=== PATIENT | female | born 2005 | race Caucasian/White ===

== ENCOUNTER 2024-01-17 16:58 | Emergency (ER) | payer MEDICAID ==
[~2024-01-17] VITALS: Ht 167.6 cm; Wt 49.9 kg
[2024-01-17 17:23] LABS: BASOPHILS % (AUTO) 0.5 % (0.0-2.0); EOSINOPHILS # (AUTO) 0.1 K/uL (0.0-0.7); EOSINOPHILS % (AUTO) 1.5 % (0.0-7.0); HEMOGLOBIN 13.1 g/dL (10.9-14.3); LYMPHOCYTES # (AUTO) 2.7 K/uL (0.8-4.8); LYMPHOCYTES % (AUTO) 35.5 % (20.5-74.5); MEAN CORPUSCULAR HEMOGLOBIN 30.6 uug (24.7-32.8); MEAN CORPUSCULAR HGB CONC 35 g/dL (32.3-35.6); MEAN CORPUSCULAR VOLUME 86.6 fL (75.5-95.3); MONOCYTES # (AUTO) 0.6 K/uL (0.1-1.30); MONOCYTES % (AUTO) 7.7 % (0-11); NEUTROPHILS # (AUTO) 4.2 K/uL (1.8-8.9); NEUTROPHILS % (AUTO) 54.8 % (31.5-64.5); PLATELET COUNT (AUTO) 430 K/uL (179-408); RED BLOOD CELL COUNT(AUTO) 4.28 MIL/uL (3.63-4.92); RED CELL DISTRIBUTION WIDTH 12.9 % (12.3-17.7); WHITE BLOOD COUNT (AUTO) 7.7 K/uL (3.8-11.8)
[2024-01-17 17:24] LABS: DIFFERENTIAL COMMENT 1
[2024-01-17] MEDS: IV NORMAL SALINE 1000 ML BAG IV ONE (17:26)
[2024-01-17] MEDS ORDERED: LORAZEPAM 2 MG/1 ML VIAL ONE (17:28)
[2024-01-17 17:31] LABS: CALCIUM 9.2 mg/dL (8.5-10.1); CARBON DIOXIDE 28 mmol/L (21-32); CHLORIDE 105 mmol/L (98-107); CREATININE 0.8 mg/dL (0.6-1.3); GLUCOSE 76 mg/dL (74-106); POTASSIUM 3.5 mmol/L (3.5-5.1); SODIUM SERUM 142 mmol/L (136-145); UREA NITROGEN, BLOOD 7 mg/dL (7-18)
[2024-01-17] MEDS: LORAZEPAM 2 MG/1 ML VIAL IV ONE (17:36)
[2024-01-17 17:37] LABS: ALANINE AMINOTRANSFERASE 16 U/L (14-59); ALBUMIN 4.2 g/dL (3.4-5.0); ALKALINE PHOSPHATASE 62 U/L (50-136); ASPARTATE AMINOTRANSFERASE 10 U/L (15-37); BILIRUBIN,DIRECT 0.2 mg/dL (0.0-0.2); BILIRUBIN,TOTAL 0.9 mg/dL (0.2-1.0); TOTAL PROTEIN, SERUM 7.7 g/dL (6.4-8.2)
[2024-01-17 17:46] LABS: ETHANOL < 3 MG/DL (0-10)
[2024-01-17 17:55] LABS: *BILIRUBIN,URIN NEGATIVE (NEGATIVE); *BLOOD, URINE TRACE (NEGATIVE); *CLARITY,URINE CLEAR (CLEAR); *COLOR,URINE YELLOW (YELLOW); *KETONES,URINE TRACE (NEGATIVE); *PROTEIN,URINE NEGATIVE (NEGATIVE); LEUKOCYTE ESTERASE ,URINE 1+ (NEGATIVE); NITRITE, URINE NEGATIVE (NEGATIVE); UGLUCOSE NEGATIVE (NEGATIVE)
[2024-01-17 17:56] LABS: *URINE HCG, QUAL NEGATIVE (NEGATIVE)
[2024-01-17 18:05] LABS: BACTERIA,URINE FEW /HPF (NONE SEEN); RBC,URINE 0-3 /HPF (0-3)
[2024-01-17 18:06] LABS: SQUAMOUS EPITHELIAL CELL,UR MODERATE /HPF (NONE SEEN)
[2024-01-17 18:07] LABS: *AMPHETAMINE, URINE POSITIVE (NEGATIVE); *BARBITURATE, URINE NEGATIVE (NEGATIVE); *BENZODIAZEPINE, URINE NEGATIVE (NEGATIVE); *CANNABINOID, URINE POSITIVE (NEGATIVE); *COCCAINE, URINE NEGATIVE (NEGATIVE); *OPIATE, URINE NEGATIVE (NEGATIVE); *PHENCYCLIDINE SCREEN,URINE NEGATIVE (NEGATIVE); FENTANYL, URINE NEGATIVE (NEGATIVE)
[2024-01-18 08:23] VITALS: BP 101/61; O2SAT 99
== END 2024-01-18 06:25 | disposition home or self-care (01) ==
LOC: ER 16:59 → EDBD 16:59 → ER 01-18 06:25
DX: R41.82 Altered mental status, unspecified (principal); R06.02 Shortness of breath; Z60.2 Problems related to living alone
CPT/HCPCS: 80076; 80048; 81001; 84703; 85025; 36415; 93005; 99284; 96361; 96374; 87086; 80320; 80307; J2060; J7040; A4606; A4663; G0480

== ENCOUNTER 2024-01-18 14:23 | Emergency (ER) | payer MEDICAID ==
[~2024-01-18] VITALS: Ht 167.6 cm; Wt 49.9 kg
[2024-01-18] MEDS ORDERED: LORAZEPAM 2 MG/1 ML VIAL ONE (14:30)
[2024-01-18] MEDS: LORAZEPAM 2 MG/1 ML VIAL IM ONE (14:41)
[2024-01-18 14:55] LABS: BASOPHILS % (AUTO) 0.5 % (0.0-2.0); EOSINOPHILS # (AUTO) 0.1 K/uL (0.0-0.7); HEMATOCRIT 36.1 % (31.2-41.9); HEMOGLOBIN 12.8 g/dL (10.9-14.3); LYMPHOCYTES # (AUTO) 1.9 K/uL (0.8-4.8); LYMPHOCYTES % (AUTO) 24.8 % (20.5-74.5); MEAN CORPUSCULAR HEMOGLOBIN 30.4 uug (24.7-32.8); MEAN CORPUSCULAR HGB CONC 36 g/dL (32.3-35.6); MEAN CORPUSCULAR VOLUME 85.6 fL (75.5-95.3); MONOCYTES # (AUTO) 0.5 K/uL (0.1-1.30); NEUTROPHILS # (AUTO) 5.1 K/uL (1.8-8.9); NEUTROPHILS % (AUTO) 67.7 % (31.5-64.5); PLATELET COUNT (AUTO) 405 K/uL (179-408); RED BLOOD CELL COUNT(AUTO) 4.22 MIL/uL (3.63-4.92); WHITE BLOOD COUNT (AUTO) 7.6 K/uL (3.8-11.8)
[2024-01-18 14:56] LABS: *BILIRUBIN,URIN NEGATIVE (NEGATIVE); *BLOOD, URINE 1+ (NEGATIVE); *CLARITY,URINE CLEAR (CLEAR); *COLOR,URINE YELLOW (YELLOW); *KETONES,URINE NEGATIVE (NEGATIVE); *PROTEIN,URINE NEGATIVE (NEGATIVE); *UROBILINOGEN,URINE 0.2 E.U./dl (NORMAL); LEUKOCYTE ESTERASE ,URINE NEGATIVE (NEGATIVE); NITRITE, URINE NEGATIVE (NEGATIVE); UGLUCOSE NEGATIVE (NEGATIVE)
[2024-01-18 15:02] LABS: DIFFERENTIAL COMMENT 1
[2024-01-18 15:10] LABS: *URINE HCG, QUAL NEGATIVE (NEGATIVE)
[2024-01-18] MEDS: HALOPERIDOL LACTATE 5 MG/1 ML VIAL IM ONE (15:10)
[2024-01-18 15:16] LABS: BILIRUBIN,DIRECT 0.2 mg/dL (0.0-0.2); BILIRUBIN,TOTAL 0.7 mg/dL (0.2-1.0); CREATININE 0.8 mg/dL (0.6-1.3); POTASSIUM 3.5 mmol/L (3.5-5.1); TOTAL PROTEIN, SERUM 7.1 g/dL (6.4-8.2)
[2024-01-18 15:23] LABS: *AMPHETAMINE, URINE POSITIVE (NEGATIVE); *BARBITURATE, URINE NEGATIVE (NEGATIVE); *BENZODIAZEPINE, URINE NEGATIVE (NEGATIVE); *CANNABINOID, URINE POSITIVE (NEGATIVE); *COCCAINE, URINE NEGATIVE (NEGATIVE); *OPIATE, URINE NEGATIVE (NEGATIVE); *PHENCYCLIDINE SCREEN,URINE NEGATIVE (NEGATIVE); FENTANYL, URINE NEGATIVE (NEGATIVE)
[2024-01-18 15:28] LABS: BACTERIA,URINE MODERATE /HPF (NONE SEEN); SQUAMOUS EPITHELIAL CELL,UR FEW /HPF (NONE SEEN)
[2024-01-19 11:27] VITALS: BP 102/63; TEMP 97.7; O2SAT 99
== END 2024-01-19 11:30 | disposition home or self-care (01) ==
LOC: ER 14:25
DX: F15.10 Other stimulant abuse, uncomplicated (principal); R10.2 Pelvic and perineal pain
CPT/HCPCS: 80076; 80048; 81001; 84703; 85025; 36415; 99285; 96372 ×2; 80320; 80307; J1630; J2060; A4606; A4663; G0480